=== PATIENT | male | born 1990 | race Caucasian/White ===

== ENCOUNTER 2017-07-18 19:19 | Emergency (ER) | payer SELFPAY ==
[~2017-07-18] VITALS: Ht 175.3 cm; Wt 57.0 kg
[~2017-07-18 19:19] MED LIST: OXYC5 PO; PROM25SU8 PO
[2017-07-18 19:24] VITALS: BP 153/99; PULSE 103; RESP 16; TEMP 98.3; O2SAT 99
--- NOTE | 2017-07-18 19:44 | PD ---
HPI Chief Complaint: OD/ Ingestion Time Seen by Provider: 19:28 Travel History International Travel<30 days: No Contact w/Intl Traveler<30days: No Traveled to known affect area: No History of Present Illness HPI 27-year-old male with a history of IV drug use presents to emergency department after an accidental overdose that occurred just prior to arrival. Patient states that his friends were using Roxicet and Dilaudid IV and he apparently had LOC. Patient was found alert and oriented 3 by EVAC. Patient denies chest pain or shortness breath. Denies abdominal pain. Denies any other IV drug use. States he's been using IV drugs since he was 15. He was recently released from care home. In addition, patient was diagnosed with pneumonia a few weeks ago at [facility] and was given Levaquin but did not receive this medication for several days when he was in the care home. Says that he received outpatient medication and today was last day of taking Levaquin. Patient requests HIV and hepatitis testing. Patient did not want to come to the hospital today. PFSH Past Medical History Autoimmune Disease: No Cancer: No Cardiovascular Problems: No Diminished Hearing: No Endocrine: No Gastrointestinal Disorders: No Genitourinary: No Hepatitis: Yes (HEP C) Immune Disorder: No Musculoskeletal: Yes Neurologic: No Psychiatric: No Reproductive: No Respiratory: No Integumentary: Yes (RECENT SCABIES) Pancreatitis: Yes Pneumonia: Yes Past Surgical History Surgical History: No Previous Surgery Other Surgery: No Social History Alcohol Use: Yes Tobacco Use: Yes (1-2 PPD) Substance Use: Yes (COCCAINE, heroin, ETIENNE) Allergies-Medications (Allergen,Severity, Reaction): Coded Allergies: acetaminophen (Unverified Allergy, Severe, 07/18/17) "KIDNEYS AND LIVER HURT" Reported Meds & Prescriptions Reported Meds & Active Scripts Active Review of Systems Except as stated in HPI: all other systems reviewed are Neg Physical Exam Narrative GENERAL: Well-developed well-nourished in no apparent distress SKIN: Focused skin assessment warm/dry. HEAD: Atraumatic. Normocephalic. EYES: Pupils equal and round. No scleral icterus. No injection or drainage. ENT: No nasal bleeding or discharge. Mucous membranes pink and moist. NECK: Trachea midline. No JVD. CARDIOVASCULAR: Regular rate and rhythm. No murmur appreciated. RESPIRATORY: No accessory muscle use. Clear to auscultation. Breath sounds equal bilaterally. GASTROINTESTINAL: Abdomen soft, non-tender, nondistended. Hepatic and splenic margins not palpable. MUSCULOSKELETAL: No obvious deformities. No clubbing. No cyanosis. No edema. NEUROLOGICAL: Awake and alert. No obvious cranial nerve deficits. Motor grossly within normal limits. Normal speech. PSYCHIATRIC: Appropriate mood and affect; insight and judgment normal. Data Data Last Documented VS Vital Signs Date Time Temp Pulse Resp B/P (MAP) Pulse Ox O2 Delivery O2 Flow Rate FiO2 07/18/17 19:38 103 16 99 Room Air 07/18/17 19:24 98.3 153/99 (117) Orders Orders Electrocardiogram (07/18/17 19:36) Sodium Chloride 0.9% Flush (Ns Flush) (07/18/17 19:45) Drug Screen, Random Urine (07/18/17 19:36) Sodium Chlor 0.9% 1000 Ml Inj (Ns 1000 M (07/18/17 19:45) Chest, Pa & Lat (07/18/17 21:10) Albuterol-Ipratropium Neb (Duoneb Neb) (07/18/17 21:15) Ed Discharge Order (07/18/17 22:32) Labs Laboratory Tests Test 07/18/17 20:05 Urine Opiates Screen POS Urine Barbiturates Screen NEG Urine Amphetamines Screen NEG Urine Benzodiazepines Screen NEG Urine Cocaine Screen POS Urine Cannabinoids Screen NEG MDM Medical Decision Making Medical Screen Exam Complete: Yes Emergency Medical Condition: Yes Differential Diagnosis Polysubstance abuse, overdose, pneumonia Narrative Course 27-year-old male with a history of IVDU and hepatitis C presents to emergency department after an accidental overdose that occurred just prior to arrival. Patient states that his friends were using Roxicet and Dilaudid IV and he apparently had LOC. Patient was found alert and oriented 3 by EVAC. Patient denies chest pain or shortness breath. Denies abdominal pain. Denies any other IV drug use. States he's been using IV drugs since he was 15. He was recently released from care home. In addition, patient was diagnosed with pneumonia a few weeks ago at [facility] and was given Levaquin but did not receive this medication for several days when she was in the care home. Says that he received outpatient medication and today was last day of taking Levaquin. Patient requests HIV and hepatitis testing. Patient do not want to come to the hospital. Denies hallucinations or SI/HI. Vital signs- slight tachycardia. EKG sinus arrhythmia at [address] depressions or elevations Patient states that when he has taken IV Dilaudid and Roxicet prior, he has slight tachycardia. Denies any other drug use. I explained to the patient that HIV and hepatitis testing is not appropriate for the emergency department. Advised he may follow-up at the health department for these tests. Laboratory Tests Test 07/18/17 20:05 Urine Opiates Screen POS Urine Barbiturates Screen NEG Urine Amphetamines Screen NEG Urine Benzodiazepines Screen NEG Urine Cocaine Screen POS Urine Cannabinoids Screen NEG A suspected, there was evidence of cocaine in the urine drug screen, likely contributes to patient's tachycardia. Patient is adamant about leaving and joining his father as he has liver cancer. IV bolus not completed secondary to patient inability to tolerate the IVF. Patient states that he would have to walk to get to his father's house. He is currently staying at [facility] apparently. Pt feels fine and wants to leave. Advised he should follow-up with primary care physician. Return to the emergency department for worsening or persistent symptoms. Please see Dr. Baez's note for more information regarding this patient. Diagnosis Primary Impression: Accidental overdose Qualified Codes: T50.901A - Poisoning by unspecified drugs, medicaments and biological substances, accidental (unintentional), initial encounter Referrals: [facility] Additional Instructions: Follow up with your primary care physician within 2-3 days. If your symptoms persist or worsen, return to the emergency department. Avoid IV drugs as they may cause sepsis, infections, or . Disposition: 01 DISCHARGE HOME Condition: Stable Paige Nelson Jul 18, 2017 19:44
[2017-07-18] MEDS ORDERED: SODIUM CHLORIDE 0.9% FLUSH 10 ML FLUSH IVF PRN (19:45)
[2017-07-18] MEDS ORDERED: SODIUM CHLOR 0.9% 1000 ML INJ 1,000 ML IV ONE (19:45)
--- NOTE | 2017-07-18 20:15 | PD ---
Physical Exam Narrative General: The patient is a well-developed well-nourished male in no acute distress. Head and Neck exam: Head is normocephalic atraumatic. Eyes: EOMI, pupils are equal round and reactive to light. Nose: Midline septum with pink mucous membranes Mouth: Dentition unremarkable. Moist mucus membranes. Posterior oropharynx is not erythematous. No tonsillar hypertrophy. Uvula midline. Airway patent. Neck: No palpable lymphadenopathy. No nuchal rigidity. No thyromegaly. Cardiovascular: Regular rate and rhythm without murmurs, gallops, or rubs. No pulse deficit to the extremities on simultaneous auscultation and palpation of his radial artery. The patient initially on arrival had a sinus tachycardia in the low 100s. However by the time I arrived in the room to examine the patient, the patient's sinus tachycardia has resolved. Lungs: Soft expiratory wheezes audible anteriorly. No prolonged expiratory phase of breathing. No paroxysmal abdominal breathing, no accessory muscle use. No rhonchi or crackles. The patient reports that he does smoke a pack of cigarettes per day. He also reports having a recent history of pneumonia. Abdomen: Soft, without tenderness to palpation in all 4 quadrants of the abdomen. No guarding, rebound, or rigidity. Normal bowel sounds are audible. No tenderness on palpation of McBurney's point. Extremities: No clubbing, cyanosis, or edema. 2+ pulses in all 4 extremities. No calf tenderness on palpation. The patient has track glover noted. No signs of abscess formation or cellulitis. Back: No spinous process tenderness to palpation. No costovertebral angle tenderness to palpation. Neurologic Exam: Cranial nerves 2-12 were intact on exam. Strength is 5/5 in all 4 extremities. No sensory deficits noted. Skin Exam: No rash noted. Intact skin that is warm and dry. Data Data Last Documented VS Vital Signs Date Time Temp Pulse Resp B/P (MAP) Pulse Ox O2 Delivery O2 Flow Rate FiO2 07/18/17 19:38 103 16 99 Room Air 07/18/17 19:24 98.3 153/99 (117) Orders Orders Electrocardiogram (07/18/17 19:36) Sodium Chloride 0.9% Flush (Ns Flush) (07/18/17 19:45) Drug Screen, Random Urine (07/18/17 19:36) Sodium Chlor 0.9% 1000 Ml Inj (Ns 1000 M (07/18/17 19:45) Chest, Pa & Lat (07/18/17 21:10) Albuterol-Ipratropium Neb (Duoneb Neb) (07/18/17 21:15) Ed Discharge Order (07/18/17 22:32) Labs Laboratory Tests Test 07/18/17 20:05 Urine Opiates Screen POS Urine Barbiturates Screen NEG Urine Amphetamines Screen NEG Urine Benzodiazepines Screen NEG Urine Cocaine Screen POS Urine Cannabinoids Screen NEG MDM Medical Record Reviewed: Yes Supervised Visit with ELO: Yes Interpretation(s) Last Impressions Chest X-Ray 07/18/172109 Signed Impressions: Service Date/Time: Tuesday, July 18, 2017 22:01 - CONCLUSION: No acute cardiopulmonary disease. Adina Manzo MD Narrative Course I, Dr. Baez, have reviewed the advance practice practitioner's documentation and am in agreement, met with the patient face to face, made the diagnosis, and the medical decision making was done by me. The patient was initially evaluated by Judi. Please see their complete history and physical. *My assessment and Findings: The patient presents with a history of syncopal event that occurred earlier today after using oxycodone 30 mg IV. The patient reports having a long-standing history of IV drug use since he was 15 years of age and injured his back and was placed on pain medication at that time. He reports that he had been in pain management for his chronic back pain for approximately 10 years. He reports that he then began to abuse his pain drugs. He reports that whenever he abuses to get high he ends up in [facility]. He reports that he has gone through detox in [facility] several times. He reports that he is interested in quitting. He reports that he has not used regularly since he was released from [facility] 10 days ago. He reports that this past week he has been under increased stress as he found out his dad has liver cancer. Because of this he has been using he reports that he used twice this last week. He reports that he has minimal tolerance at this point. He does not usually inject oxycodone, however he did do this earlier today and then had an episode where he became unresponsive. The patient reports that his dad for cold water on his genital area which awakened him. He denies having Narcan administered. The patient was awake and alert upon ambulance services arrival was transported to this facility. The patient has remained awake and alert during his evaluation in the hospital. The patient's other history is significant for approximate 3 weeks ago being diagnosed with pneumonia. He was placed on Levaquin. He has been erratic at taking the medication due to being in [facility]. He reports that he took the last pill yesterday. During the course of the patients emergency department visit, the patients history, examination, and differential diagnosis were reviewed with the patient. The patient was placed on a occupational health and safety officer with oximetry and frequent blood pressure monitoring. The patient had IV access obtained and blood work sent for analysis. The patient had an ECG done on arrival that shows a sinus rhythm with a sinus arrhythmia, heart rate 84, QRS duration is 102 ms, QTC [address] segment elevation or depression is noted per T waves are inverted in V1. The patient was initially provided a DuoNeb 1. Chest x-ray PA and lateral was ordered. The patients laboratory studies were reviewed and remarkable for a urine drug screen that is positive for opiates and cocaine. Radiology studies were reviewed and remarkable for a chest x-ray that showed no acute cardiopulmonary disease. The patient is resting comfortably and feels better, is alert and in no distress. The patients results and examination findings were discussed with the patient. The repeat examination is unremarkable and benign. The history, exam, diagnostic testing, and current condition do not suggest any significant pathology to warrant further testing, continued ED treatment, admission, or surgical evaluation at this point. The vital signs have been stable. The patient does not have uncontrollable pain, intractable vomiting, or other significant symptoms. The patient's condition is stable and appropriate for discharge. The patient will pursue further outpatient evaluation with a primary care physician or other designated or consulting physician as indicated in the discharge instructions. The patient expressed understanding and was agreeable with this plan. Diagnosis Primary Impression: Accidental overdose Qualified Codes: T50.901A - Poisoning by unspecified drugs, medicaments and biological substances, accidental (unintentional), initial encounter Referrals: [facility] as needed for consideration of assistance with detox Additional Instruction: Follow up with your primary care physician within 2-3 days. If your symptoms persist or worsen, return to the emergency department. Disposition: 01 DISCHARGE HOME Condition: Stable Greer Baez MD Jul 18, 2017 20:15
[2017-07-18] MEDS ORDERED: RESP: ALBUTEROL 2.5 MG/IPRATROPIUM 0.5 MG NEB (SCH) NEB ONE (21:15)
--- NOTE | 2017-07-18 22:24 | RADRPT ---
EXAM DATE/TIME: 07/18/2017 22:01 [facility] COMPARISON: CHEST SINGLE AP, January 26, 2016, 0:02. INDICATIONS : Cough MEDICAL HISTORY : None. SURGICAL HISTORY : None. ENCOUNTER: Initial ACUITY: 1 day PAIN SCORE: 0/10 LOCATION: Bilateral chest FINDINGS: The lungs are clear without infiltrate, nodule, or mass. There is no appreciable pleural effusion fo r technique. Heart and mediastinum are unremarkable. CONCLUSION: No acute cardiopulmonary disease. Adina Manzo MD on July 18, 2017 at 22:21 Board Certified Radiologist. This report was verified electronically.
--- NOTE | 2017-07-19 17:43 | EKG ---
Date Performed: 07/18/2017 Time Performed: 19:42:50 PTAGE: 27 years EKG: Sinus rhythm WITH SINUS ARRHYTHMIA NORMAL ECG PREVIOUS TRACING : 01/26/2016 00.11 Compared to prior tracing no significant change DOCTOR: Rupinder Langley Interpretating Date/Time 07/19/2017 17:42:37
== END 2017-07-18 23:37 | disposition home or self-care (01) ==
LOC: NEPE 19:19
DX: T50.901A Poisoning by unspecified drugs, medicaments and biological substances, accidental (unintentional), initial encounter (principal); F11.10 Opioid abuse, uncomplicated; F14.10 Cocaine abuse, uncomplicated; I49.8 Other specified cardiac arrhythmias; R00.0 Tachycardia, unspecified; F17.200 Nicotine dependence, unspecified, uncomplicated; Z86.19 Personal history of other infectious and parasitic diseases; Z87.19 Personal history of other diseases of the digestive system
CPT/HCPCS: 71046; 80307; 93005; 94664; 96360; 99285; J7030